=== PATIENT | male | born 1975 | race African-American/Black ===

== ENCOUNTER 2016-11-02 22:54 | Emergency (ER) | payer SELFPAY ==
[~2016-11-02] VITALS: Ht 180.3 cm; Wt 129.0 kg
[2016-11-03] MEDS ORDERED: HYDROCODONE/ACETAMINOPHEN 5/325MG TABLET PO ONE (00:30)
[2016-11-03] MEDS ORDERED: LIDOCAINE HCL 1% 20ML VIAL (Pyxis) INJ MC ONE (01:15)
[2016-11-03] MEDS ORDERED: SULFAMETHOXAZOLE/TRIMETHOPRIM 800/160MG TABLET PO ONE (01:30)
[2016-11-03] MEDS ORDERED: CEPHALEXIN 500MG CAPSULE PO ONE (01:30)
[2016-11-03 02:08] VITALS: BP 139/82
== END 2016-11-03 02:11 | disposition home or self-care (01) ==
LOC: ER 22:58
DX: L02.211 Cutaneous abscess of abdominal wall (principal); F17.210 Nicotine dependence, cigarettes, uncomplicated
CPT/HCPCS: 10060; 99284; J3490; X7700; Z7610

== ENCOUNTER 2017-01-06 11:53 | Emergency (ER) | payer SELFPAY ==
[~2017-01-06] VITALS: Ht 180.3 cm; Wt 128.0 kg
[2017-01-06] MEDS ORDERED: KETOROLAC 30MG/ML VIAL IM ONE (22:45)
[2017-01-06 23:18] VITALS: BP 138/79
== END 2017-01-06 23:41 | disposition home or self-care (01) ==
LOC: ER 11:53
DX: M54.2 Cervicalgia (principal); R51 Headache; V79.9XXA Bus occupant (driver) (passenger) injured in unspecified traffic accident, initial encounter; Y93.89 Activity, other specified; Y92.89 Other specified places as the place of occurrence of the external cause; Y99.8 Other external cause status
CPT/HCPCS: 70450; 72125; 96372; 99284; J1885

== ENCOUNTER 2019-05-15 09:36 | Emergency (ER) | payer SELFPAY ==
[~2019-05-15] VITALS: Ht 180.3 cm; Wt 125.0 kg
[2019-05-15 10:06] VITALS: BP 142/87
== END 2019-05-15 10:27 | disposition home or self-care (01) ==
LOC: ER 09:36
DX: J06.9 Acute upper respiratory infection, unspecified (principal)
CPT/HCPCS: 99281